=== PATIENT | male | born 1995 | race Caucasian/White ===

== ENCOUNTER 2023-05-30 00:24 | Emergency (ER) | payer SELFPAY ==
[~2023-05-30] VITALS: Ht 185 cm; Wt 77.0 kg
[~2023-05-30 00:24] MED LIST: AMIT25TA9 PO
[2023-05-30] MEDS ORDERED: CITA10TA9 PO (00:48)
--- NOTE | 2023-05-30 01:06 | ED Headache ---
General Chief Complaint: Head/Cervical Problems Stated Complaint: MIGRAINE Nursing Triage Note: C/O HEADACHE, NAUSEA, BILATERAL HAND NUMBNESS SINCE 1900. STARTED ON CITALOPRAM 05/29/23 AFTER BEING OFF ANTIDEPRESSANTS X1 MONTH. Source: patient, family (mother) Exam Limitations: clinical condition History of Present Illness Date Seen by Provider: May 30, 2023 Time Seen by Provider: 00:50 Initial Comments Patient is a 27-year-old male with a history of depression who presents to the emergency room with severe left-sided headache onset around 7 PM. He has been vomiting nonstop since that time. He has had "hand numbness" as well with the vomiting. He started a new medication at 10:00 yesterday morning, citalopram. He states he has had some diarrhea. Runny nose when he vomits, sore throat when he vomits. Does not take any other daily medications. He had previously been out of his antidepressants for about a month. He did take some ibuprofen prior to arrival but it has not helped. He has had similar headaches in the past but "it has been a while". Mother is present at the bedside with him. Timing/Duration: 4-6 hours Severity/Quality: severe Location: frontal, temporal (left sided) Prior Headaches/Recent Trauma: occasional headaches ("migraines") Modifying Factors: worse with movement Associated Symptoms: nausea/vomiting, nasal drainage Allergies and Home Medications Allergies Coded Allergies: No Known Drug Allergies (Unverified , 01/14/14) Patient Home Medication List Home Medication List Reviewed: Yes Citalopram Hydrobromide (Citalopram HBr) 10 Mg Tablet, Unknown Dose PO, (Reported) Entered as Reported by: GEOVANY TALAVERA on 05/30/23 0048 Last Action: New Order Ondansetron (Ondansetron Odt) 4 Mg Tab.rapdis, 4 MG SL Q8H PRN for NAUSEA/VOMITING Prescribed by: EDWARDO ARMANDO on 05/30/23 0305 Discontinued Medications Amitriptyline Hcl (Amitriptyline Hcl) 25 Mg Tablet, 1 EACH PO DAILY, (Reported) Discontinued Reason: No Longer Taking Entered as Reported by: JAZZY SOTELO on 01/14/14 0894 Last Action: Discontinued Review of Systems Review of Systems Constitutional: see HPI, malaise, weakness Eyes: No Symptoms Reported Ears, Nose, Mouth, Throat: see HPI Respiratory: no symptoms reported Cardiovascular: no symptoms reported Gastrointestinal: nausea, vomiting Genitourinary: no symptoms reported Musculoskeletal: no symptoms reported Psychiatric/Neurological: Headache Past [id number]-Scqvhm Hx Patient Social History Tobacco Use?: No Substance use?: No Alcohol Use?: No Pt feels they are or have been: No Past Medical History Surgery/Hospitalization HX: DEPRESSION, CUTTING Reproductive Disorders: No Sexually Transmitted Disease: No Physical Exam Vital Signs Vital Signs - First Documented 05/30/23 00:43 Temp 36.5 Pulse 80 Resp 14 B/P (MAP) 125/86 (99) Pulse Ox 100 O2 Delivery Room Air Capillary Refill : Less Than 3 Seconds Height, Weight, BMI Height: 6'1" Weight: 150lbs. oz. 68.126146ip; 22.00 BMI Method:Stated General Appearance: WD/WN, moderate distress, other (speaks to me in almost a whispered voice; keeps eyes closed) HEENT: PERRL/EOMI, TMs normal, pharynx normal (mildly dry mucous membranes) Neck: non-tender, full range of motion, supple Cardiovascular: regular rate, rhythm Respiratory: lungs clear, normal breath sounds, no respiratory distress Gastrointestinal: soft, tenderness (epigastric tenderness) Extremities: normal range of motion, normal inspection Psychiatric: alert, oriented x 3, depressed affect Crainal Nerves: normal hearing, normal speech, PERRL; No abnormal eye position, No abnormal pupil position, No abnormal speech Coordination/Gait: negative Romberg's sign Motor/Sensory: no motor deficit, no sensory deficit, no pronator drift Skin: normal color, warm/dry Progress/Results/Core Measures Results/Orders Lab Results Laboratory Tests Test 05/30/23 01:13 05/30/23 01:22 Range/Units Sodium Level 136 135-145 MMOL/L Potassium Level 3.6 3.6-5.0 MMOL/L Chloride Level 102 98-107 MMOL/L Carbon Dioxide Level 19 L 21-32 MMOL/L Anion Gap 15 H 5-14 MMOL/L Blood Urea Nitrogen 14 7-18 MG/DL Creatinine 1.26 0.60-1.30 MG/DL Estimat Glomerular Filtration Rate 80 BUN/Creatinine Ratio 11 Glucose Level 172 H 70-105 MG/DL Calcium Level 9.3 8.5-10.1 MG/DL Corrected Calcium 8.5-10.1 MG/DL Total Bilirubin 1.5 H 0.1-1.0 MG/DL Aspartate Amino Transf (AST/SGOT) 16 5-34 U/L Alanine Aminotransferase (ALT/SGPT) 13 0-55 U/L Alkaline Phosphatase 66 40-136 U/L Total Protein 7.7 6.4-8.2 GM/DL Albumin 4.6 H 3.2-4.5 GM/DL SARS-CoV-2 RNA (RT-PCR) Not Detected Not Detecte My Orders Orders - EDWARDO ARMANDO MD Ed Iv/Invasive Line Start (05/30/23 01:02) Comprehensive Metabolic Panel (05/30/23 01:02) Covid 19 Inhouse Test (05/30/23 01:02) Ketorolac Injection (Ketorolac Injection (05/30/23 01:15) Ondansetron Injection (Ondansetron Inj (05/30/23 01:15) Diphenhydramine Injection (Diphenhydram (05/30/23 01:15) Lactated Ringers 1,000 Ml (Lactated Ring (05/30/23 01:15) Sumatriptan Injection (Sumatriptan Injec (05/30/23 02:15) Rx-Ondansetron Po (Rx-Zofran Po) (05/30/23 03:05) Medications Given in ED Vital Signs/I&O 05/30/23 05/30/23 00:43 03:28 Temp 36.5 36.3 Pulse 80 66 Resp 14 16 B/P (MAP) 125/86 (99) 121/79 Pulse Ox 100 99 O2 Delivery Room Air Room Air Blood Pressure Mean: 99 Progress Progress Note : Time: 03:03 Progress Note Patient seen and evaluated by me. Evaluation today includes history and physical exam. He had comprehensive metabolic panel, COVID test. Pertinent physical exam findings well-developed well-nourished male who appears moderately distressed, laying in the recliner chair eyes closed, poor eye contact. Speaks in a whispered voice. Poorly compliant with exam. Heart is regular, lungs are clear. Abdomen has mild tenderness in the epigastrium. He has no focal neurologic deficits, moving all extremities normally with good strength and sensation throughout. Negative Romberg, cranial nerves are normal. No limb ataxia. Differential diagnosis COVID, acute migraine, dehydration, tension headache Labs independently reviewed and interpreted by me. His COVID test is negative. Comprehensive metabolic panel shows mildly depressed CO2 at 19. His glucose is a little elevated at 172. He is treated initially in the emergency department with 15 mg of IV Toradol, 4 mg of Zofran and 25 mg of Benadryl. On my initial reevaluation he was sleeping, when I woke him up he states his headache was still a "8". I administered a liter of lactated Ringer's and 6 mg of sumatriptan. Consideration for CT head however history and physical do not seem to support the need at this time. He had a improvement in his headache. Take- home pack of Zofran was given. Return precautions provided. Advised to follow- up with his primary care physician next week. Departure Impression Primary Impression: Migraine Qualified Codes: G43.909 - Migraine, unspecified, not intractable, without status migrainosus Disposition: HOME, SELF-CARE Condition: Stable Departure-Patient Inst. Decision time for Depature: 03:03 [place] [facility] [place] Primary Care Physician Patient Instructions: Home Headache Remedies Add. Discharge Instructions: Start with a clear liquid diet in the morning due to your nausea and vomiting this evening. Slowly advance as tolerated throughout the day. I have given you a prescription for nausea medication, ondansetron/Zofran 4 mg orally disintegrating tablets. You can take 1 every 6-8 hours as needed. Continue Excedrin Migraine 2 tablets every 6 hours as needed for headache. If you develop a fever, rash, worsening headache please return to the emergency department for reevaluation. Please follow-up with your primary care physician Scripts Ondansetron (Ondansetron Odt) 4 Mg Tab.rapdis 4 MG SL Q8H PRN for NAUSEA/VOMITING, #12 TAB Prov: EDWARDO ARMANDO MD 05/30/23 Copy Copies To 1: SHONNA SCHAFER KATHRYN M MD May 30, 2023 01:06
[2023-05-30] MEDS ORDERED: LACTATED RINGERS 1,000 ML 1,000 ML IV SCH (01:15)
[2023-05-30] MEDS ORDERED: diphenhydrAMINE INJ 50 MG/ML VIAL IVP ONE (01:15)
[2023-05-30] MEDS ORDERED: ONDANSETRON INJECTION 4 MG/2 ML (SDV) IVP ONE (01:15)
[2023-05-30] MEDS ORDERED: KETOROLAC INJ 15 MG/ML VIAL IVP ONE (01:15)
[2023-05-30 01:33] LABS: ALBUMIN 4.6 GM/DL (3.2-4.5); CHLORIDE 102 MMOL/L (98-107); POTASSIUM 3.6 MMOL/L (3.6-5.0); SODIUM 136 MMOL/L (135-145)
[2023-05-30 01:34] LABS: CALCIUM 9.3 MG/DL (8.5-10.1)
[2023-05-30 01:35] LABS: GLUCOSE 172 MG/DL (70-105); TOTAL PROTEIN 7.7 GM/DL (6.4-8.2)
[2023-05-30 01:36] LABS: CARBON DIOXIDE 19 MMOL/L (21-32)
[2023-05-30 01:37] LABS: BILIRUBIN,TOTAL 1.5 MG/DL (0.1-1.0)
[2023-05-30 01:39] LABS: ALKALINE PHOSPHATASE 66 U/L (40-136); CREATININE SERUM 1.26 MG/DL (0.60-1.30); GFR ESTIMATED 80
[2023-05-30 01:40] LABS: BUN/CREATININE RATIO 11
[2023-05-30 01:42] LABS: ALANINE AMINOTRANSFERASE 13 U/L (0-55)
[2023-05-30] MEDS ORDERED: SUMAtriptan INJECTION 6 MG/0.5 ML SQ ONE (02:15)
[2023-05-30] MEDS ORDERED: RX-ONDANSETRON 4 MG ODT (ZOFRAN) PPK #4 PO STA (03:05)
[2023-05-30] MEDS ORDERED: ONDA4TAB11 SL (03:05)
[2023-05-30 03:28] VITALS: BP 121/79
== END 2023-05-30 03:31 | disposition home or self-care (01) ==
LOC: EDUNIT# 00:24 → ER 00:28
DX: G43.909 Migraine, unspecified, not intractable, without status migrainosus (principal); R10.13 Epigastric pain; R73.9 Hyperglycemia, unspecified; R79.81 Abnormal blood-gas level
CPT/HCPCS: 36415; 80053; 87636